=== PATIENT | female | born 1990 | race Caucasian/White ===

== ENCOUNTER 2017-06-29 19:46 | Emergency (ER) | payer OTHER ==
[~2017-06-29] VITALS: Ht 162.6 cm; Wt 68.0 kg
[2017-06-29 19:46] VITALS: BP 152/73
[~2017-06-29 19:46] MED LIST: ACET325T9 PO; ACET500T33 PO; ALBUTEROL INH; IBUP-1060 PO; OXYC-323 PO; PNV1TABL25 PO
[2017-06-29] MEDS ORDERED: BENZ100C PO (20:32)
[2017-06-29] MEDS ORDERED: PROAIR RESPICL90 MCG IH (20:32)
[2017-06-29] MEDS ORDERED: AZIT250T PO (20:32)
--- NOTE | 2017-06-29 20:32 | PHYS DOC ---
Past Medical History Past Medical History: No Pertinent History, Asthma, Cancer, MRSA Past Surgical History: Tonsillectomy, Other Additional Past Surgical Histo: ABSCESS REMOVAL ON BREASTX2 Alcohol Use: Occasionally Drug Use: None Adult General Chief Complaint Chief Complaint: EARACHE/EAR PAIN [facility] Patient is a 27 year old female who presents with left ear pain and coughing that began yesterday. Patient denies any fever. Review of Systems Review of Systems Constitutional: Denies fever or chills [] Eyes: Denies change in visual acuity, redness, or eye pain [] HENT: Left ear pain Respiratory: cough Cardiovascular: No additional information not addressed in [facility] [] GI: Denies abdominal pain, nausea, vomiting, bloody stools or diarrhea [] : Denies dysuria or hematuria [] Musculoskeletal: Denies back pain or joint pain [] Integument: Denies rash or skin lesions [] Neurologic: Denies headache, focal weakness or sensory changes [] Endocrine: Denies polyuria or polydipsia [] Allergies Allergies Allergies Coded Allergies Type Severity Reaction Last Updated Verified Penicillins Allergy Intermediate Hives 04/29/16 Yes cefaclor Allergy Intermediate Hives 04/29/16 Yes strawberry Allergy Intermediate 04/29/16 Yes Physical Exam Physical Exam Constitutional: Well developed, well nourished, no acute distress, non-toxic appearance. [] HENT: Normocephalic, atraumatic, bilateral external ears normal, oropharynx moist, no oral exudates, nose normal. [] Left TM is moderately injected with moderate amount of cloudy fluid. Eyes: PERRLA, EOMI, conjunctiva normal, no discharge. [] Neck: Normal range of motion, no tenderness, supple, no stridor. [] Cardiovascular:Heart rate regular rhythm, no murmur [] Lungs & Thorax: Bilateral breath sounds clear to auscultation [] Abdomen: Bowel sounds normal, soft, no tenderness, no masses, no pulsatile masses. [] Skin: Warm, dry, no erythema, no rash. [] Back: No tenderness, no CVA tenderness. [] Extremities: No tenderness, no cyanosis, no clubbing, ROM intact, no edema. [] Neurologic: Alert and oriented X 3, normal motor function, normal sensory function, no focal deficits noted. [] Psychologic: Affect normal, judgement normal, mood normal. [] Current Patient Data Vital Signs Vital Signs Date Time Temp Pulse Resp B/P (MAP) Pulse Ox O2 Delivery O2 Flow Rate FiO2 06/29/17 19:46 98.0 95 19 98 Room Air 98.0 EKG EKG [] Radiology/Procedures Radiology/Procedures [] Course & Med Decision Making Course & Med Decision Making Pertinent Labs and Imaging studies reviewed. (See chart for details) Patient has left otitis media and a cough. Discharged with azithromycin and albuterol inhaler as well as Tessalon Perles. Follow-up with PCP in 1-2 weeks. Encouraged to consider smoking cessation. Dragon Disclaimer Dragon Disclaimer This electronic medical record was generated, in whole or in part, using a voice recognition dictation system. Departure Departure Impression: Primary Impression: Otitis media Additional Impressions: Cough Smoking addiction Disposition: HOME, SELF-CARE Condition: STABLE Referrals: NO PCP (PCP) Follow-up with your doctor in 1-2 weeks Patient Instructions: Cough, Adult, Otitis Media, Adult, Smoking Cessation Additional Instructions: You were seen for cough and ear infection. Consider smoking cessation. Use the medication provided as ordered. Scripts Benzonatate (TESSALON PERLE) 100 Mg Capsule 1 CAP PO TID, #30 CAP Prov: JUNIOR PAL APRN 06/29/17 Albuterol Sulfate (Proair Respiclick) 90 Mcg Aer.pow.ba 1 PUFF IH PRN Q6HRS Y for SHORTNESS OF BREATH, #1 INHALER Prov: JUNIOR PAL APRN 06/29/17 Azithromycin (ZITHROMAX) 250 Mg Tablet 1 PKG PO UD, #1 PKG Prov: JUNIOR PAL APRN 06/29/17 Problem Qualifiers Primary Impression: Otitis media Otitis media type: other nonsuppurative Chronicity: acute Laterality: left Recurrence: not specified as recurrent Qualified Codes: H65.192 - Other acute nonsuppurative otitis media, left ear JUNIOR PAL APRN Jun 29, 2017 20:32
== END 2017-06-29 20:52 | disposition home or self-care (01) ==
LOC: ER 19:46
DX: H66.92 Otitis media, unspecified, left ear (principal); F17.200 Nicotine dependence, unspecified, uncomplicated; J45.909 Unspecified asthma, uncomplicated; Z86.14 Personal history of Methicillin resistant Staphylococcus aureus infection; Z88.1 Allergy status to other antibiotic agents; Z88.0 Allergy status to penicillin; Z91.018 Allergy to other foods
CPT/HCPCS: 99283

== ENCOUNTER 2018-03-13 17:56 | Emergency (ER) | payer OTHER ==
[2018-03-13 19:05] LABS: URINE HCG POC HCG NEGATIVE (Negative)
[2018-03-13 19:15] LABS: ADD MAN DIFF? NO
[2018-03-13 19:18] LABS: BASO # 0.1 x10^3/uL (0.0-0.2); BASO % 1 % (0-3); EOS # 0.2 x10^3/uL (0.0-0.7); EOS % 3 % (0-3); HEMATOCRIT 41.7 % (36.0-47.0); HEMOGLOBIN 14.5 g/dL (12.0-15.5); LYMPH # 3.2 x10^3/uL (1.0-4.8); LYMPH % 38 % (24-48); MEAN CORPUSCULAR HEMOGLOBIN 32 pg (25-35); MEAN CORPUSCULAR HGB CONC 35 g/dL (31-37); MEAN CORPUSCULAR VOLUME 92 fL (79-100); MONO # 0.6 x10^3/uL (0.0-1.1); MONO % 7 % (0-9); NEUT # 4.3 x10^3uL (1.8-7.7); NEUT % 51 % (31-73); PLATELET COUNT 338 x10^3/uL (140-400); RED BLOOD COUNT 4.51 x10^6/uL (3.50-5.40); RED CELL DISTRIBUTION WIDTH 14.2 % (11.5-14.5); WHITE BLOOD COUNT 8.3 x10^3/uL (4.0-11.0)
[2018-03-13 19:28] LABS: BILIRUBIN,URINE NEGATIVE (NEG); CLARITY,URINE CLEAR; COLOR,URINE YELLOW; GLUCOSE,URINE NEGATIVE (NEG); NITRITE,URINE NEGATIVE (NEG); PROTEIN,URINE NEGATIVE (NEG-TRACE)
[2018-03-13 19:35] LABS: AMORPHOUS SEDIMENT,UR PRESENT /HPF; BACTERIA,URINE 0 /HPF (0-FEW); RBC,URINE 0 /HPF (0-2); SQUAMOUS EPITHELIAL CELL,UR OCC /LPF
[2018-03-13 19:36] LABS: ANION GAP 11 (6-14); BLOOD UREA NITROGEN 8 mg/dL (7-20); BUN/CREATININE RATIO 11 (6-20); CALCIUM 9.1 mg/dL (8.5-10.1); CARBON DIOXIDE 26 mmol/L (21-32); CHLORIDE 105 mmol/L (98-107); CREATININE 0.7 mg/dL (0.6-1.0); GFR 101.1; GLUCOSE 94 mg/dL (70-99); POTASSIUM 3.5 mmol/L (3.5-5.1); SODIUM 142 mmol/L (136-145)
[2018-03-13 19:38] LABS: AMPHETAMINE/METHAMPHETAMINE POS (NEG); BARBITURATES NEG (NEG); BENZODIAZEPINES NEG (NEG); CANNABINOIDS POS (NEG); COCAINE NEG (NEG); ETHANOL, URINE NEG (NEG); METHADONE NEG (NEG); OPIATES NEG (NEG); PHENCYCLIDINE NEG (NEG)
[2018-03-13 19:39] LABS: ALBUMIN 4.1 g/dL (3.4-5.0); ALBUMIN/GLOBULIN RATIO 0.8 (1.0-1.7); ALK PHOS 116 U/L (46-116); ALT (SGPT) 83 U/L (14-59); AST (SGOT) 28 U/L (15-37); TOTAL BILIRUBIN 0.3 mg/dL (0.2-1.0)
[2018-03-13] MEDS: ONDANSETRON ODT 4 MG TAB.RAPDIS. PO (19:57)
[2018-03-13] MEDS: IBUPROFEN 600 MG TABLET. PO (19:58)
== END 2018-03-13 20:50 | disposition home or self-care (01) ==
LOC: ER 17:56
DX: N39.0 Urinary tract infection, site not specified (principal); F15.10 Other stimulant abuse, uncomplicated; F12.10 Cannabis abuse, uncomplicated; J45.909 Unspecified asthma, uncomplicated; Z86.14 Personal history of Methicillin resistant Staphylococcus aureus infection; Z88.0 Allergy status to penicillin; Z88.1 Allergy status to other antibiotic agents; Z91.018 Allergy to other foods
CPT/HCPCS: 36415; 76856; 80053; 80307; 81001; 81025; 85025; 87086; 99285-25; Q0162

== ENCOUNTER 2018-09-16 13:12 | Emergency (ER) | payer OTHER ==
[~2018-09-16] VITALS: Ht 162.6 cm; Wt 68.0 kg
[~2018-09-16 13:12] MED LIST changes: +AZIT250T PO; +BENZ100C PO; +PROAIR RESPICL90 MCG IH; +SULF1TAB24 PO
[2018-09-16 13:18] VITALS: BP 126/75
--- NOTE | 2018-09-16 13:25 | PHYS DOC ---
Past Medical History Past Medical History: No Pertinent History, Asthma, Cancer, MRSA Past Surgical History: Tonsillectomy, Other Additional Past Surgical Histo: ABSCESS REMOVAL ON BREASTX2 Alcohol Use: Occasionally Drug Use: Marijuana Adult General Chief Complaint Chief Complaint: EARACHE/EAR PAIN HPI HPI Patient is a 28 year old F who presents with R ear pain for the last week. She reports that she has had problems with ear infections off and on for a couple of years. She was given a resource to f/u with an ENT at but states when she called they said they couldn't get her in for 6 months. She is allergic to PCN and states she has taken keflex and bactrim so often she thinks she is immune to it. She denies fevers and denies sinus or nasal congestion. She has had mild cough. Review of Systems Review of Systems Constitutional: Denies fever or chills HENT: Denies nasal congestion or sore throat. R ear pain Respiratory: Denies shortness of breath. Reports cough. Cardiovascular: Denies chest pain GI: Denies abdominal pain, nausea, vomiting, bloody stools or diarrhea Musculoskeletal: Denies back pain or joint pain Integument: Reports small sore in front of R ear. Neurologic: Denies headache, focal weakness or sensory changes All other systems were reviewed and found to be within normal limits, except as documented in this note. Allergies Allergies Allergies Coded Allergies Type Severity Reaction Last Updated Verified Penicillins Allergy Intermediate Hives 04/29/16 Yes cefaclor Allergy Intermediate Hives 04/29/16 Yes strawberry Allergy Intermediate 04/29/16 Yes Physical Exam Physical Exam Constitutional: Well developed, well nourished, no acute distress, non-toxic appearance. Appears uncomfortable. HENT: Normocephalic, atraumatic, pharynx and oropharynx normal, R ear TM erythema and canal inflamed with white discharge, no FB seen, mastoid nontender. L ear exam normal. Neck: Normal range of motion, no tenderness, supple, no stridor. R cervical lymphadenopathy and preauricular adenopathy. Cardiovascular:Heart rate regular rhythm, no murmur Lungs & Thorax: Bilateral breath sounds clear to auscultation Abdomen: Bowel sounds normal, soft, no tenderness, no masses, no pulsatile masses. Skin: Small scabbed sore on face in front of R ear. No fluctuance, no induration and no erythema. Back: No tenderness, no CVA tenderness. Extremities: No tenderness, no cyanosis, no clubbing, ROM intact, no edema. Neurologic: Alert and oriented X 3, normal motor function, normal sensory function, no focal deficits noted. Psychologic: Affect normal, judgement normal, mood normal. Current Patient Data Vital Signs Vital Signs Date Time Temp Pulse Resp B/P (MAP) Pulse Ox O2 Delivery O2 Flow Rate FiO2 09/16/18 13:18 97.8 88 16 126/75 (92) 98 Room Air 97.8 EKG EKG [] Radiology/Procedures Radiology/Procedures [] Course & Med Decision Making Course & Med Decision Making Pertinent Labs and Imaging studies reviewed. (See chart for details) Discussed with pt that she needs close f/u with ENT. With recurrent infections , this could be fungal or viral or something unusual. Discussed danger of hearing loss as well as spread of infection to head or neck and she voices understanding. Resource numbers provided for [facility] and [facility] ENT clinics. VD call from pt's family that she was unable to afford the medicine due to her insurance being inactive. I placed multiple calls to local pharmacies and found we can get Cipro and Gent Opth drops (to be used in ear) the cheapest at [employer] here at [facility]. These were called in and then I contacted her family back to let her know. Fiordaliza Disclaimer Fiordaliza Disclaimer This electronic medical record was generated, in whole or in part, using a voice recognition dictation system. Departure Departure Impression: Primary Impression: Otitis media Additional Impression: Otitis externa Disposition: 01 HOME, SELF-CARE Condition: STABLE Referrals: NO PCP (PCP) [facility] [phone] [facility] ENT [phone] Patient Instructions: Otitis Externa, [id number], Otitis Media, Adult, Easy- to-Read Additional Instructions: It is very important that you follow up with an Ear, Nose and Throat doctor (ENT ) since recurrent infections can lead to hearing loss as well as infections throughout the head and neck. Scripts Ciprofloxacin/Hydrocortisone (CIPRO HC OTIC SUSPENSION) 10 Ml Drops.susp 3 DROP BID, #10 ML Prov: ANANDA PEDROZA 09/16/18 Ciprofloxacin Hcl (CIPRO) 500 Mg Tablet 1 TAB PO BID, #14 TAB Prov: ANANDA PEDROZA 09/16/18 Tramadol Hcl (TRAMADOL HCL) 50 Mg Tablet 50 MG PO Q4HRS PRN for PAIN for 5 Days, #20 TAB Prov: ANANDA PEDROZA 09/16/18 Problem Qualifiers ANANDA PEDROZA Sep 16, 2018 13:25
[2018-09-16] MEDS ORDERED: TRAM50TA PO (13:33)
[2018-09-16] MEDS ORDERED: CIPR10DR AS (13:33)
[2018-09-16] MEDS ORDERED: CIPR500T94 PO (13:33)
== END 2018-09-16 13:58 | disposition home or self-care (01) ==
LOC: ER 13:12
DX: H60.91 Unspecified otitis externa, right ear (principal); H66.91 Otitis media, unspecified, right ear; R05 Cough; J45.909 Unspecified asthma, uncomplicated; Z86.14 Personal history of Methicillin resistant Staphylococcus aureus infection; Z88.0 Allergy status to penicillin; Z88.8 Allergy status to other drugs, medicaments and biological substances; Z91.018 Allergy to other foods
CPT/HCPCS: 99283

== ENCOUNTER 2020-03-29 13:49 | Emergency (ER) | payer MEDICAID, OTHER ==
[~2020-03-29] VITALS: Ht 162.6 cm; Wt 68.0 kg
[~2020-03-29 13:49] MED LIST changes: +CIPR10DR AS; +CIPR500T94 PO; -OXYC-323 PO; +OXYC1TAB15 PO; +TRAM50TA PO
[2020-03-29] MEDS ORDERED: PRED20TA PO (14:44)
--- NOTE | 2020-03-29 14:44 | PHYS DOC ---
Past Medical History Past Medical History: MRSA Past Surgical History: No Surgical History Additional Past Surgical Histo: ABSCESS REMOVAL ON BREASTX2 Smoking Status: Current Every Day Smoker Alcohol Use: None Drug Use: None General Adult EDM: Chief Complaint: SKIN RASH/ABSCESS HPI: HPI: Patient is a 29-year-old female who presents today with a allergic reaction. She states she took some Benadryl at home and the rash is getting better. She presents here because she needs a note to get back to work. She has not had any difficulty swallowing or breathing she does not feel like her tongue is swollen. She states the rash is predominantly on her arms and her abdomen. [] Review of Systems: Review of Systems: Constitutional: Denies fever or chills. [] Eyes: Denies change in visual acuity. [] HENT: Denies nasal congestion or sore throat. [] Respiratory: Denies cough or shortness of breath. [] Cardiovascular: Denies chest pain or edema. [] GI: Denies abdominal pain, nausea, vomiting, bloody stools or diarrhea. [] : Denies dysuria. [] Musculoskeletal: Denies back pain or joint pain. [] Integument: Per HPI [] Neurologic: Denies headache, focal weakness or sensory changes. [] Endocrine: Denies polyuria or polydipsia. [] Lymphatic: Denies swollen glands. [] Psychiatric: Denies depression or anxiety. [] Heart Score: Risk Factors: Risk Factors: DM, Current or recent (<one month) smoker, HTN, HLP, family history of CAD, obesity. Risk Scores: Score 0 - 3: 2.5% MACE over next 6 weeks - Discharge Home Score 4 - 6: 20.3% MACE over next 6 weeks - Admit for Clinical Observation Score 7 - 10: 72.7% MACE over next 6 weeks - Early Invasive Strategies Allergies: Allergies: Allergies Coded Allergies Type Severity Reaction Last Updated Verified Penicillins Allergy Intermediate Hives 04/29/16 Yes cefaclor Allergy Intermediate Hives 04/29/16 Yes strawberry Allergy Intermediate 04/29/16 Yes Physical Exam: PE: Constitutional: Well developed, well nourished, no acute distress, non-toxic appearance. [] HENT: Normocephalic, atraumatic, bilateral external ears normal, oropharynx moist, no oral exudates, nose normal. [] Eyes: PERRLA, EOMI, conjunctiva normal, no discharge. [] Neck: Normal range of motion, no tenderness, supple, no stridor. [] Cardiovascular:Heart rate regular rhythm, no murmur [] Lungs & Thorax: Bilateral breath sounds clear to auscultation [] Abdomen: Bowel sounds normal, soft, no tenderness, no masses, no pulsatile masses. [] Skin: Diffuse urticarial rash [] Back: No tenderness, no CVA tenderness. [] Extremities: No tenderness, no cyanosis, no clubbing, ROM intact, no edema. [] Neurologic: Alert and oriented X 3, normal motor function, normal sensory function, no focal deficits noted. [] Psychologic: Affect normal, judgement normal, mood normal. [] Current Patient Data: Vital Signs: Vital Signs Date Time Temp Pulse Resp B/P (MAP) Pulse Ox O2 Delivery O2 Flow Rate FiO2 03/29/20 14:15 98.4 97 16 134/73 (93) 97 Room Air 98.4 EKG: EKG: [] Radiology/Procedures: Radiology/Procedures: [] Course & Med Decision Making: Course & Med Decision Making Pertinent Labs and Imaging studies reviewed. (See chart for details) [] Dragon Disclaimer: [employer] (acquired by [employer] in 2014) Disclaimer: This electronic medical record was generated, in whole or in part, using a voice recognition dictation system. Departure Departure Impression: Primary Impression: Allergic reaction Qualified Codes: T78.40XA - Allergy, unspecified, initial encounter Additional Impression: Urticaria Disposition: 01 HOME, SELF-CARE Condition: STABLE Referrals: NO PCP (PCP) Patient Instructions: Hivlily Wang Prednisone (PREDNISONE) 20 Mg Tablet 2 TAB PO DAILY PRN for COUGH, #14 TAB Prov: LEONID HERNANDES DO 03/29/20 LEONID HERNANDES DO March 29, 2020 14:44
== END 2020-03-29 14:50 | disposition home or self-care (01) ==
LOC: ER 13:49
DX: T78.40XA Allergy, unspecified, initial encounter (principal); L50.9 Urticaria, unspecified; Z86.14 Personal history of Methicillin resistant Staphylococcus aureus infection; F17.200 Nicotine dependence, unspecified, uncomplicated; Z88.0 Allergy status to penicillin; Z88.1 Allergy status to other antibiotic agents; Z91.018 Allergy to other foods; X58.XXXA Exposure to other specified factors, initial encounter
CPT/HCPCS: 99283